=== PATIENT | female | born 1995 ===

== ENCOUNTER 2020-07-09 21:40 | Emergency (ER) | payer SELFPAY ==
[2020-07-09 22:27] VITALS: BP 110/71
--- NOTE | 2020-07-09 22:43 | Event Note ---
ED Screening Note Date of service: 07/09/20 Time: 22:43 ED Screening Note: 25-year-old female presents to the emergency room stating she has had a fever back pain chest pain and headache. Denies any nausea no vomiting. This initial assessment/diagnostic orders/clinical plan/treatment(s) is/are subject to change based on patients health status, clinical progression and re- assessment by fellow clinical providers in the ED. Further treatment and workup at subsequent clinical providers discretion. Patient/guardian urged not to elope from the ED as their condition may be serious if not clinically assessed and managed. Initial orders include:
[2020-07-09 23:02] LABS: Bilirubin,Urine NEG (Negative); Blood,Urine MOD (Negative); Color,Urine Yellow (Yellow); Mucus,Urine FEW /HPF; Protein,Urine <15 mg/dL mg/dL (Negative); Urobilinogen,Urine < 2.0 mg/dL (<2.0)
[2020-07-09 23:03] LABS: HCG Qualitative,Urine Negative (Negative)
--- NOTE | 2020-07-09 23:41 | Emergency Department Report ---
ED General Adult HPI - General Chief complaint: Fever Stated complaint: FEVER/CHEST PAIN Time Seen by Provider: 07/09/20 23:37 Source: patient Mode of arrival: Ambulatory Limitations: Language Barrier - History of Present Illness Initial comments: Language line used for [place] interpretation Patient is a 25-year-old female presents emergency room complaints of subjective fever and generalized body aches that began yesterday. She has associated low back pain, chills, urinary frequency, nausea, chest wall/breast pain. She denies any cough, dysuria, vomiting, diarrhea, shortness of breath. She states that she has had a sick contact with her who had a cough. She states that she did recently travel to [place]. No past medical history. No allergies to medications. Last menstrual cycle 06/14/2020. - Related Data Previous Rx's Medication Instructions Recorded Last Taken Type Acetaminophen [Tylenol] 650 mg PO Q8HR PRN #20 capsule 07/09/20 Unknown Rx Ondansetron [Zofran Odt] 4 mg PO Q8HR PRN #7 tab.rapdis 07/09/20 Unknown Rx cephALEXin [Keflex] 500 mg PO BID 7 Days #14 cap 07/09/20 Unknown Rx Allergies Allergy/AdvReac Type Severity Reaction Status Date / Time No Known Allergies Allergy Verified 07/09/20 22:27 ED Review of Systems ROS: Stated complaint: FEVER/CHEST PAIN Other details as noted in HPI Comment: All other systems reviewed and negative ED Past Medical Hx - Past Medical History Previous Medical History?: Yes Hx Arthritis: No - Surgical History Past Surgical History?: No - Social History Smoking Status: Never Smoker Substance Use Type: None - Medications Home Medications: Home Medications Medication Instructions Recorded Confirmed Last Taken Type Acetaminophen [Tylenol] 650 mg PO Q8HR PRN #20 capsule 07/09/20 Unknown Rx Ondansetron [Zofran Odt] 4 mg PO Q8HR PRN #7 tab.rapdis 07/09/20 Unknown Rx cephALEXin [Keflex] 500 mg PO BID 7 Days #14 cap 07/09/20 Unknown Rx ED Physical Exam - General Limitations: Language Barrier General appearance: alert, in no apparent distress - Head Head exam: Present: atraumatic, normocephalic - Eye Eye exam: Present: normal appearance - ENT ENT exam: Present: mucous membranes moist - Respiratory Respiratory exam: Present: normal lung sounds bilaterally. Absent: respiratory distress, wheezes, rales, rhonchi, stridor, chest wall tenderness, accessory muscle use, decreased breath sounds, prolonged expiratory - Cardiovascular Cardiovascular Exam: Present: regular rate, normal rhythm, normal heart sounds. Absent: systolic murmur, diastolic murmur, rubs, gallop - GI/Abdominal GI/Abdominal exam: Present: soft, normal bowel sounds. Absent: distended, tenderness, guarding, rebound, rigid - Neurological Exam Neurological exam: Present: alert, oriented X3 - Psychiatric Psychiatric exam: Present: normal affect, normal mood - Skin Skin exam: Present: warm, dry, intact ED Course Vital Signs 07/09/20 07/10/20 22:23 00:27 Temperature 97.6 F Pulse Rate 99 H 88 Respiratory 17 18 Rate Blood Pressure 110/71 O2 Sat by Pulse 98 100 Oximetry ED Medical Decision Making - Lab Data Lab Results 07/09/20 Range/Units Unknown Urine Color Yellow (Yellow) Urine Turbidity Clear (Clear) Urine pH 6.0 (5.0-7.0) Ur Specific Brush 1.013 (1.003-1.030) Urine Protein <15 mg/dl (Negative) mg/dL Urine Glucose (UA) Neg (Negative) mg/dL Urine Ketones Neg (Negative) mg/dL Urine Blood Mod (Negative) Urine Nitrite Neg (Negative) Urine Bilirubin Neg (Negative) Urine Urobilinogen < 2.0 (<2.0) mg/dL Ur Leukocyte Esterase Mod (Negative) Urine WBC (Auto) 46.0 H (0.0-6.0) /HPF Urine RBC (Auto) 20.0 (0.0-6.0) /HPF U Epithel Cells (Auto) 10.0 (0-13.0) /HPF Urine Mucus Few /HPF Urine HCG, Qual Negative (Negative) Vital Signs 07/09/20 07/10/20 22:23 00:27 Temperature 97.6 F Pulse Rate 99 H 88 Respiratory 17 18 Rate Blood Pressure 110/71 O2 Sat by Pulse 98 100 Oximetry - Medical Decision Making Language line used for [place] interpretation Patient is a 25-year-old female presents emergency room complaints of subjective fever and generalized body aches that began yesterday. She has associated low back pain, chills, urinary frequency, nausea, chest wall/breast pain. She denies any cough, dysuria, vomiting, diarrhea, shortness of breath. She states that she has had a sick contact with her who had a cough. She states that she did recently travel to [place]. No past medical history. No allergies to medications. Last menstrual cycle 06/14/2020. Vitals are normal. No abnormality on physical examination as documented in chart. UA shows evidence of UTI. Urine is negative. Symptoms likely related to viral URI and UTI. She has no clinical signs of bacterial pneumonia or bacterial bronchitis. Given that patient has had a sick contact and recent travel to [place], discussed the possibility of COVID-19 with patient, discussed return precautions, discussed outpatient testing, discussed quarantine. Patient given prescription for Keflex, Zofran, Tylenol. Advised patient Please take medication as prescribed. Please increase your fluid intake over the next several days. May take Tylenol as needed for fever or body aches. May take iail-[id number]-[id number] cold symptom relief medication such as Mucinex or TheraFlu. Follow-up with a primary care doctor for reexamination. Return to emergency room immediately for any new or worsening symptoms including but not limited to difficulty breathing, shortness of breath, severe chest pain, unable to tolerate by mouth intake, etc. Please self quarantine for 10 days from the onset of your symptoms. Please do not go out in public. If you are around others at home please wear a mask. If you need to cough or sneeze please do so in a napkin and immediately throw it away and immediately wash your hands. Wash your hands frequently. Wipe everything down. Recommend for you to get COVID-19 testing, may have this done at primary care doctor, health department, [facility] testing center. - Differential Diagnosis UTI, influenza, viral syndrome, COVID-19, PNA, bronchitis Critical care attestation.: If time is entered above; I have spent that time in minutes in the direct care of this critically ill patient, excluding procedure time. ED Disposition Clinical Impression: Viral illness UTI (urinary tract infection) Qualifiers: Urinary tract infection type: acute cystitis Hematuria presence: with hematuria Qualified Code(s): N30.01 - Acute cystitis with hematuria Disposition: TO HOME OR SELFCARE Is pt being admited?: No Does the pt Need Aspirin: No Condition: Stable Instructions: Urinary Tract Infection, Adult, Viral Illness, Adult Additional Instructions: Please take medication as prescribed. Please increase your fluid intake over the next several days. May take Tylenol as needed for fever or body aches. May take oajc-pvp-yztsssd cold symptom relief medication such as Mucinex or TheraFlu. Follow-up with a primary care doctor for reexamination. Return to emergency room immediately for any new or worsening symptoms including but not limited to difficulty breathing, shortness of breath, severe chest pain, unable to tolerate by mouth intake, etc. Please self quarantine for 10 days from the onset of your symptoms. Please do not go out in public. If you are around others at home please wear a mask. If you need to cough or sneeze please do so in a napkin and immediately throw it away and immediately wash your hands. Wash your hands frequently. Wipe everything down. Recommend for you to get COVID- 19 testing, may have this done at primary care doctor, health department, [facility] drive thru testing center. [place] los medicamentos segn lo prescrito. Aumente la ingesta de lquidos bruno los prximos cai. Puede fernando Tylenol segn sea necesario para la fiebre o los gabe corporales. Puede fernando medicamentos de venta zoila para aliviar los sntomas del resfriado, jennifer Mucinex o TheraFlu. Shanita un seguimiento con un mdico de atencin primaria para un nuevo examen. Regrese a la brad de emergencias de inmediato si tiene sntomas nuevos o que empeoran, incluidos, entre otros, dificultad para respirar, falta de aliento, dolor de pecho intenso, incapacidad para tolerar la ingestin oral, etc. Por favor, pngase en cuarente na bruno 10 cai desde el inicio de karen sntomas. Por favor, no salga en pblico. Si est con otras personas en casa, use jessica mscara. Si necesita toser o estornudar, hgalo en jessica servilleta, deschela inmediatamente y lvese las emily inmediatamente. Lvese las emily con frecuencia. Limpia todo. Le recomiendo que se shanita la prueba de COVID-19, puede hacerlo en el mdico de atencin primaria, el departamento de [place] o el centro de pruebas de [facility]. Prescriptions: cephALEXin [Keflex] 500 mg PO BID 7 Days #14 cap Acetaminophen [Tylenol] 650 mg PO Q8HR PRN #20 capsule PRN Reason: pain/fever Ondansetron [Zofran Odt] 4 mg PO Q8HR PRN #7 tab.rapdis PRN Reason: vomiting Referrals: PRIMARY CARE, [Primary Care Provider] - 2-3 Days CHICA ORELLANA MD [Staff Physician] - 2-3 Days [facility] [Provider Group] - 2-3 Days Time of Disposition: 23:39 Print Language: NEPAL[place]
== END 2020-07-10 00:27 | disposition home or self-care (01) ==
LOC: ED 21:40
DX: N39.0 Urinary tract infection, site not specified (principal); B34.9 Viral infection, unspecified; Z79.899 Other long term (current) drug therapy
CPT/HCPCS: 81001; 81025; 87086